=== PATIENT | female | born 1965 | race Caucasian/White ===

== ENCOUNTER → 2017-05-18 | Outpatient (REF) | payer OTHER | LOC: M SFHCWAGY 13:12 | PROVIDERS: ATTEND Nurse Practitioner Women's Health | DX: Z12.4 Encounter for screening for malignant neoplasm of cervix (principal) ==

== ENCOUNTER 2018-07-01 06:34 | Emergency (ER) | payer OTHER ==
[~2018-07-01] VITALS: Ht 160 cm; Wt 77.3 kg
--- NOTE | 2018-07-01 07:32 | REP ---
Clinical: Right shoulder pain with heavy lifting . Technique: Internal rotation, external rotation, and Y view. Findings: No acute fracture or dislocation. The acromioclavicular and glenohumeral joints are intact. Degenerative changes with periarticular calcification along the posterior aspect of the glenoid rim cannot be excluded. Sub acromial space is normal. Surrounding soft tissues are unremarkable. Impression: Possible arthritic changes involving the glenoid rim. Otherwise age appropriate examination. If the patient remains symptomatic consider MRI for further investigation. Electronically Signed by Zack Coulter MD 07/01/2018 07:23 A
[2018-07-01] MEDS ORDERED: MORPHINE 2 MG/ML 1ML SYRINGE (J2270) IM ONE (07:45)
[2018-07-01] MEDS ORDERED: NORCOTAB PO (08:16)
[2018-07-01 08:20] VITALS: BP 179/96
--- NOTE | 2018-07-01 13:59 | ECGEPIP ---
Stationary ECG Study [facility] - ED Test Date: 2018-07-01 Pat Name: ANICETO WATERMAN Department: Room: - Gender: F Conversion Developer: : 1965 Requested By: LUIS DANIEL Deluna PA-C Order Number: [id number] Reading MD: Amy Griggs Measurements Intervals [place] Rate: 56 P: 21 [place]: 159 QRS: 14 QRSD: 106 T: 1 QT: 432 QTc: 418 Interpretive Statements SINUS BRADYCARDIA NSTTW ABNORMALITY NO PRIOR FOR COMPARISON Electronically Signed On 07-01-2018 13:59:25 EST by Amy Griggs
== END 2018-07-01 08:25 | disposition home or self-care (01) ==
LOC: M ED 06:34
DX: M25.511 Pain in right shoulder (principal); I10 Essential (primary) hypertension; Z88.8 Allergy status to other drugs, medicaments and biological substances
CPT/HCPCS: 73030; 93005; 96372; 99284; J2270

== ENCOUNTER → 2018-08-10 | Outpatient (REF) | payer OTHER ==
[~2018-08-10] MED LIST: NORCOTAB PO
== END ==
LOC: M SFHCLERA 11:02
PROVIDERS: ATTEND Nurse Practitioner Family
DX: J02.9 Acute pharyngitis, unspecified (principal)

== ENCOUNTER → 2018-09-12 | Outpatient (REF) | payer OTHER ==
[~2018-09-12] MED LIST changes: +HYDR-3715 PO; -NORCOTAB PO
[2018-09-12 18:15] LABS: APPEARANCE, URINE CLEAR (CLEAR); BACTERIA, URINE AUTO NEGATIVE (NEGATIVE); BILIRUBIN, URINE AUTO NEGATIVE (NEGATIVE); BLOOD, URINE BLOOD NEGATIVE (NEGATIVE); COLOR, URINE STRAW (YELLOW); GLUCOSE, URINE (UA) AUTO NEGATIVE (NEGATIVE); KETONE, URINE AUTO NEGATIVE (NEGATIVE); LEUKOCYTE ESTERASE, URINE AUTO 3+ (NEGATIVE); MUCUS, URINE SMALL (NEGATIVE); NITRITE, URINE AUTO NEGATIVE (NEGATIVE); PROTEIN, URINE AUTO NEGATIVE (NEGATIVE); RBC, URINE AUTO 0 /HPF (0-3); SPECIFIC GRAVITY URINE AUTO 1.006 (1.002-1.035); SQUAMOUS EPITHELIAL CELL UR AU 0 /HPF (0-6); TRANSITIONAL EPITHELIAL AUTO 2 /HPF; UROBILINOGEN, URINE AUTO 0.2 mg/dL (0.0-2.0); WBC, URINE AUTO 55 /HPF (0-3)
== END ==
LOC: M SMT 17:28
PROVIDERS: ATTEND Nurse Practitioner Family
DX: R31.0 Gross hematuria (principal)
CPT/HCPCS: 81001; 87088; 87186; 88108; G0463

== ENCOUNTER → 2018-09-16 | Outpatient (CLI) | payer OTHER ==
[~2018-09-16] MED LIST changes: -HYDR-3715 PO; +ISOVUE-370 76% 125ML VIAL (Q9967 PER ML) As Ordered ONE; +NORCOTAB PO
--- NOTE | 2018-09-16 16:21 | REP ---
Clinical: Gross hematuria. Technique: Axial precontrast, contrast enhanced, and delayed images of the abdomen and pelvis using 100 ml Isovue 370 intravenous contrast material with coronal and sagittal re-formations as well as 3-D CT urogram. Findings: Evaluation of the urinary check system suggests a 1 mm nonobstructing lower pole right renal calculus (image 65). No further abnormalities are appreciated. Specifically, no perinephric stranding, hydroureteronephrosis, obstructing ureteral calculi, cystic or renal mass lesions are identified. Evaluation of the bladder demonstrates a 2.5 mm calculus along the nondependent left anterior bladder wall associated mural abnormality cannot be excluded although no obvious enhancing lesion is appreciated. Liver, spleen, pancreas, and bilateral adrenal glands are normal. Cholelithiasis noted without acute cholecystitis. The enteric system is without obstruction or acute inflammatory process. Normal terminal ileum and appendix are identified in the right lower quadrant. Further evaluation the pelvis demonstrates normal uterus / adnexa. No ascites. No free air. No adenopathy. Abdominal aorta and vasculature normal. Musculoskeletal structures are intact. Impression: 1. 1 mm nonobstructing right intrarenal calculus. A 2.5 mm calculus along the nondependent the left anterior bladder wall without further obvious bladder abnormality. Cystoscopy may be warranted for further investigation. Remainder of the urinary tract system appears normal. 2. Cholelithiasis. Electronically Signed by Zack Coulter MD 09/16/2018 04:12 P
== END ==
LOC: M RAD 15:28
PROVIDERS: ATTEND Nurse Practitioner Family
DX: R31.0 Gross hematuria (principal); N20.0 Calculus of kidney; K80.20 Calculus of gallbladder without cholecystitis without obstruction
CPT/HCPCS: 74178; Q9967

== ENCOUNTER → 2018-11-11 | Outpatient (CLI) | payer OTHER ==
[~2018-11-11] MED LIST changes: +HYDR-3715 PO; -ISOVUE-370 76% 125ML VIAL (Q9967 PER ML) As Ordered ONE; -NORCOTAB PO
[2018-11-11 09:48] LABS: APPEARANCE, URINE CLEAR (CLEAR); BACTERIA, URINE AUTO NEGATIVE (NEGATIVE); BILIRUBIN, URINE AUTO NEGATIVE (NEGATIVE); BLOOD, URINE BLOOD NEGATIVE (NEGATIVE); COLOR, URINE STRAW (YELLOW); GLUCOSE, URINE (UA) AUTO NEGATIVE (NEGATIVE); HEMATOCRIT 43.1 % (36.0-47.0); HEMOGLOBIN 14.3 g/dl (12.0-15.5); KETONE, URINE AUTO NEGATIVE (NEGATIVE); LEUKOCYTE ESTERASE, URINE AUTO TRACE (NEGATIVE); MEAN CORPUSCULAR HEMOGLOBIN 29.6 pg (27.0-33.0); MEAN CORPUSCULAR HGB CONC 33.2 g/dl (32.0-36.5); MEAN CORPUSCULAR VOLUME 89.2 fl (80.0-96.0); NITRITE, URINE AUTO NEGATIVE (NEGATIVE); PLATELET COUNT, AUTOMATED 261 10^3/uL (150-450); PROTEIN, URINE AUTO NEGATIVE (NEGATIVE); RBC, URINE AUTO 0 /HPF (0-3); RED BLOOD COUNT 4.83 10^6/uL (4.00-5.40); SPECIFIC GRAVITY URINE AUTO 1.003 (1.002-1.035); SQUAMOUS EPITHELIAL CELL UR AU 0 /HPF (0-6); UROBILINOGEN, URINE AUTO 0.2 mg/dL (0.0-2.0); WBC, URINE AUTO 3 /HPF (0-3); WHITE BLOOD COUNT 6.1 10^3/uL (4.0-10.0)
[2018-11-11 10:18] LABS: BLOOD UREA NITROGEN 12 MG/DL (7-18); CARBON DIOXIDE LEVEL 31 MEQ/L (21-32); CHLORIDE LEVEL 104 MEQ/L (98-107); CREATININE FOR GFR 0.76 MG/DL (0.55-1.30); GLOMERULAR FILTRATION RATE > 60.0 (>51); GLUCOSE, FASTING 97 MG/DL (70-100); POTASSIUM SERUM 4.6 MEQ/L (3.5-5.1); SODIUM LEVEL 140 MEQ/L (136-145)
--- NOTE | 2018-11-11 12:41 | ECGEPIP ---
[facility] Test Date: 2018-11-11 Pat Name: ANICETO WATERMAN Department: Room: - Gender: Female Gut Snatcher: PEÑA : 1965 Requested By: CHUCK Blanchard Order Number: [id number] Reading MD: Alem Rayo Measurements Intervals [place] Rate: 63 P: ID: 160 QRS: 14 QRSD: 86 T: 2 QT: 388 QTc: 398 Interpretive Statements Normal sinus rhythm NONSPECIFIC ST-WAVE ABNORMALITY FREQUENT PVCS QUADRIGEMINY RATE FASTER PVCS NEW C/W 07/01/18 Electronically Signed on 11-11-2018 12:40:46 EDT by Alem Rayo
== END ==
LOC: M LAB 08:55
PROVIDERS: ATTEND Specialist
DX: R31.0 Gross hematuria (principal)

== ENCOUNTER 2018-11-21 07:10 | Day surgery (SDC) | payer OTHER ==
[~2018-11-21] VITALS: Ht 160 cm; Wt 79.4 kg
[~2018-11-21 07:10] MED LIST changes: +LIDOCAINE 1% MDV 20ML VIAL SQ PRN; +LR 1,000 ML IV ONE
[2018-11-21] MEDS ORDERED: SCOPOLAMINE 1MG TRANSDERMAL PATCH TOP SCH (08:00)
[2018-11-21] MEDS ORDERED: ONDANSETRON 4MG/2ML VIAL (J2405) As Ordered ONE (08:08)
[2018-11-21] MEDS ORDERED: LIDOCAINE 2% INJ 100 MG/5 ML SDV (FOR ANES.) As Ordered ONE (08:08)
[2018-11-21] MEDS ORDERED: PROPOFOL 200 MG/20 ML VIAL As Ordered ONE (08:08)
[2018-11-21] MEDS ORDERED: ROCURONIUM BROMIDE 50 MG/5 ML VIAL As Ordered ONE (08:08)
[2018-11-21] MEDS ORDERED: dexameTHASONE 4 MG/ML 1ML VIAL (J1100) As Ordered ONE (08:08)
[2018-11-21] MEDS ORDERED: MIDAZOLAM INJ 2 MG/2 ML VIAL (J2250) As Ordered ONE (08:13)
[2018-11-21] MEDS ORDERED: fentaNYL 100 MCG/2 ML INJECTION (J3010) As Ordered ONE ×2 (08:13→10:51)
[2018-11-21] MEDS ORDERED: BUPIVACAINE/EPIN 0.25% 30 ML VIAL As Ordered ONE (09:02)
[2018-11-21] MEDS ORDERED: LIDOCAINE 2% 5ML JELLY UROJET As Ordered ONE (09:02)
[2018-11-21] MEDS ORDERED: BACITRACIN PWD 50,000 UNITS VIAL As Ordered ONE (09:50)
[2018-11-21] MEDS ORDERED: BACITRACIN OINT 30GM As Ordered ONE (10:26)
[2018-11-21] MEDS ORDERED: oxyCODONE 5MG TAB As Ordered ONE (11:04)
[2018-11-21] MEDS ORDERED: METOCLOPRAMIDE INJ 10MG/2ML VIAL (J2765) As Ordered ONE (11:10)
--- NOTE | 2018-11-21 11:19 | RO ---
DATE OF SURGICAL PROCEDURE: 11/21/2018 PREOPERATIVE DIAGNOSES: History of a tension-free vaginal tape-obturator (TVT-O), now with bladder calcifications seen on sling material, and also extrusion and erosion of midurethral sling in the vaginal region. POSTOPERATIVE DIAGNOSES: History of a tension-free vaginal tape-obturator (TVT-O), now with bladder calcifications seen on sling material, and also extrusion and erosion of midurethral sling in the vaginal region. PROCEDURES: 1. Vaginal examination under anesthesia with exploration and removal of midurethral sling material. 2. Cystoscopy with transurethral resection of bladder calcification in sling material coming through the left lateral wall. SURGEON: Dr. Liz Modi ANESTHESIA: General. MEDICATIONS: Ancef 2 grams preoperatively. DRAINS: 16-[place]ander Holloway catheter. SPECIMENS: Calcification in sling material. INDICATIONS FOR PROCEDURE: The patient is a 53-year-old female who had a TVT-O placed by Dr. Schmitt in 2008. In 2010, she had this removed cystoscopically but still has had issues since. She was found to have significant white and red blood cells on microscopic urinalyses but without recurrent infections. A CT scan done 09/16/2018 showed a 1-mm calcification in the left anterior bladder wall measuring 2.5 mm. On physical examination, she was also felt to have a small erosion under the midurethra. After discussing all different options, alternatives, risks, and benefits, it was decided to bring her to the operating room to start with the most minimally invasive surgery, which was cystoscopic removal of the mesh material and removal of mesh material vaginally. Informed consent was obtained. DESCRIPTION OF PROCEDURE: The patient was brought into the operating room. Sequential compression devices were in place, and preoperative antibiotics were given. General anesthesia was induced. The patient was then placed in the lithotomy position, and careful attention was paid that her pressure points were well padded and protected. She was prepped and draped in a usual fashion. Next, a [place]field retractor was utilized, and a vaginal examination was done. Again, there was some extrusion of the mesh material underneath the midurethra. A midurethral incision was made, and some mesh material was removed. When no more mesh material was felt, copious antibiotic irrigation was done, and vaginal mucosa was reapproximated using 2-0 chromic sutures. Next, a 24-[place] Ze[place]ander continuous-flow resectoscope was inserted. The urethra was opened without any evidence of lesions, strictures, or injury. Upon entering the bladder, both ureteral orifices were seen. Again, on the anterior lateral wall of the left side of the bladder, a calcification was seen coming in on what appeared to be mesh material. This was resected using a loop, and there was no further mesh seen on the bladder wall. At this point, fulguration was done. The patient's bladder was emptied. A 16-[place] Holloway catheter was placed, and packing was placed in the vaginal region. Both the catheter and the packing will be removed in approximately an hour, since the resection was not very significant on this side. The patient tolerated the procedure well and was returned to the recovery room in stable condition.
[2018-11-21] MEDS ORDERED: LR 1,000 ML IV SCH (11:30)
[2018-11-21] MEDS ORDERED: METOCLOPRAMIDE INJ 10MG/2ML VIAL (J2765) IV PRN (11:30)
[2018-11-21] MEDS ORDERED: oxyCODONE 5MG TAB PO PRN (11:30)
[2018-11-21] MEDS ORDERED: PROMETHAZINE INJ 25 MG/ML VIAL (J2550) IV PRN (11:30)
[2018-11-21] MEDS ORDERED: fentaNYL 100 MCG/2 ML INJECTION (J3010) IV PRN (11:30)
[2018-11-21 13:50] VITALS: BP 143/88
== END 2018-11-21 14:10 | disposition home or self-care (01) ==
LOC: M SDC 07:10
PROVIDERS: ATTEND Specialist
DX: T83.712A Erosion of implanted urethral mesh to surrounding organ or tissue, initial encounter (principal); N32.89 Other specified disorders of bladder; I10 Essential (primary) hypertension; R01.1 Cardiac murmur, unspecified; R32 Unspecified urinary incontinence; Z87.440 Personal history of urinary (tract) infections; Z88.6 Allergy status to analgesic agent
CPT/HCPCS: 52224; 57287; 88300; 88304; J0690; J1100; J2250; J2405; J2765; J3010

== ENCOUNTER → 2018-12-07 | Outpatient (REF) | payer OTHER ==
[~2018-12-07] MED LIST changes: -LIDOCAINE 1% MDV 20ML VIAL SQ PRN; -LR 1,000 ML IV ONE
[2018-12-07 20:46] LABS: APPEARANCE, URINE CLEAR (CLEAR); BACTERIA, URINE AUTO NEGATIVE (NEGATIVE); BILIRUBIN, URINE AUTO NEGATIVE (NEGATIVE); BLOOD, URINE BLOOD 2+ (NEGATIVE); COLOR, URINE YELLOW (YELLOW); GLUCOSE, URINE (UA) AUTO NEGATIVE (NEGATIVE); KETONE, URINE AUTO NEGATIVE (NEGATIVE); LEUKOCYTE ESTERASE, URINE AUTO 1+ (NEGATIVE); MUCUS, URINE SMALL (NEGATIVE); NITRITE, URINE AUTO NEGATIVE (NEGATIVE); PROTEIN, URINE AUTO 1+ mg/dL (NEGATIVE); RBC, URINE AUTO 141 /HPF (0-3); SPECIFIC GRAVITY URINE AUTO 1.012 (1.002-1.035); SQUAMOUS EPITHELIAL CELL UR AU 0 /HPF (0-6); UROBILINOGEN, URINE AUTO 0.2 mg/dL (0.0-2.0); WBC, URINE AUTO 10 /HPF (0-3)
== END ==
LOC: M LABSMT 14:57
PROVIDERS: ATTEND Nurse Practitioner Family
DX: R30.0 Dysuria (principal)

== ENCOUNTER → 2019-10-27 | Outpatient (REF) | payer OTHER | LOC: M SFHCWAGY 10:19 | PROVIDERS: ATTEND Nurse Practitioner Women's Health | DX: Z12.4 Encounter for screening for malignant neoplasm of cervix (principal) | CPT/HCPCS: G0123; G0463 ==

== ENCOUNTER → 2022-02-25 | Outpatient (CLI) | payer OTHER | LOC: M WHC 14:50 | PROVIDERS: ATTEND Nurse Practitioner Family | DX: Z12.31 Encounter for screening mammogram for malignant neoplasm of breast (principal) ==

== ENCOUNTER 2022-08-23 09:15 | Emergency (ER) | payer OTHER ==
[~2022-08-23] VITALS: Ht 157.5 cm; Wt 77.0 kg
[2022-08-23] MEDS ORDERED: LIDOCAINE 5% (LIDODERM) PATCH TD ONE (10:00)
[2022-08-23] MEDS ORDERED: ONDANSETRON 4MG 2ML VIAL IV ONE (10:00)
[2022-08-23] MEDS ORDERED: MORPHINE 4 MG/ML 1ML VIAL IV ONE (10:00)
[2022-08-23] MEDS ORDERED: CYCLOBENZAPRINE 5MG TABLET PO ONE (10:05)
[2022-08-23 10:23] LABS: BASO % 0.2 % (0.0-1.0); EOS % 0.2 % (0.0-3.0); HEMATOCRIT 40.6 % (36.0-47.0); HEMOGLOBIN 13.6 g/dl (12.0-15.5); LYMPH # 2.1 10^3/uL (1.5-5.0); LYMPH % 21.3 % (24.0-44.0); MEAN CORPUSCULAR HEMOGLOBIN 29.1 pg (27.0-33.0); MEAN CORPUSCULAR HGB CONC 33.5 g/dl (32.0-36.5); MEAN CORPUSCULAR VOLUME 86.8 fl (80.0-96.0); MONO # 0.9 10^3/uL (0.0-0.8); NEUTROPHILS # 6.9 10^3/uL (1.5-8.5); PLATELET COUNT, AUTOMATED 287 10^3/uL (150-450); RED BLOOD COUNT 4.68 10^6/uL (4.00-5.40)
[2022-08-23] MEDS ORDERED: ISOVUE-370 76% 100ML VIAL As Ordered ONE (10:41)
[2022-08-23 10:51] LABS: LIPASE 24 U/L (12-53)
[2022-08-23 10:52] LABS: CK-MB VALUE MASS < 1.0 NG/ML (<3.6)
[2022-08-23 10:53] LABS: ALBUMIN 3.7 G/DL (3.2-5.2); ALKALINE PHOSPHATASE 83 U/L (46-116); ALT/SGPT 22 U/L (7.0-40); AST/SGOT 11 U/L (<34); BILIRUBIN,DIRECT 0.1 MG/DL (<0.4); BILIRUBIN,TOTAL 0.6 MG/DL (0.3-1.2); CPK CREATINE PHOSPHOKINASE 25 U/L (34-145)
[2022-08-23] MEDS ORDERED: LIDO5DIS41 TOP (13:29)
[2022-08-23] MEDS ORDERED: BENZ200C70 PO (13:29)
[2022-08-23] MEDS ORDERED: CYCL5TAB PO (13:29)
[2022-08-23 13:39] VITALS: BP 138/72
== END 2022-08-23 13:41 | disposition home or self-care (01) ==
LOC: M ED 09:15
DX: R10.84 Generalized abdominal pain (principal); N28.1 Cyst of kidney, acquired; S39.012A Strain of muscle, fascia and tendon of lower back, initial encounter; S39.011A Strain of muscle, fascia and tendon of abdomen, initial encounter; J98.11 Atelectasis; K76.0 Fatty (change of) liver, not elsewhere classified; M62.830 Muscle spasm of back; Z86.16 Personal history of COVID-19; K80.20 Calculus of gallbladder without cholecystitis without obstruction; I10 Essential (primary) hypertension; E78.5 Hyperlipidemia, unspecified; Z88.6 Allergy status to analgesic agent; Z79.899 Other long term (current) drug therapy
CPT/HCPCS: 71275; 74177; 80047; 80076; 81001; 82550; 82553; 83605; 83690; 84484; 85025; 87086; 93041; 94760; 96374; 96375; 99285; J2270; J2405

== ENCOUNTER 2023-03-24 13:57 | Observation (INO) | payer OTHER ==
[~2023-03-24] VITALS: Ht 157.5 cm; Wt 74.8 kg
[~2023-03-24 13:57] MED LIST changes: +BENZ200C70 PO; +CYCL5TAB PO; +LIDO5DIS41 TOP
[2023-03-24] MEDS ORDERED: SCOPOLAMINE 1MG TRANSDERMAL PATCH TOP ONE (16:05)
[2023-03-24] MEDS ORDERED: ROCURONIUM BROMIDE 50MG/5ML VIAL As Ordered ONE ×2 (16:09→16:58)
[2023-03-24] MEDS ORDERED: LIDOCAINE 2% 100MG/5ML SDV (FOR ANES.) As Ordered ONE (16:09)
[2023-03-24] MEDS ORDERED: propofoL 200 MG/20 ML VIAL As Ordered ONE (16:09)
[2023-03-24] MEDS ORDERED: MIDAZOLAM INJ 2MG/2ML VIAL As Ordered ONE (16:10)
[2023-03-24] MEDS ORDERED: fentaNYL 100 MCG/2 ML INJECTION As Ordered ONE (16:10)
[2023-03-24] MEDS ORDERED: ceFAZolin 2 GM/D5W 50 ML IV BAG As Ordered ONE (16:36)
[2023-03-24] MEDS ORDERED: TRANEXAMIC ACID 100 MG/ML 10ML VIAL As Ordered ONE (16:36)
[2023-03-24] MEDS ORDERED: KETOROLAC 60MG 2ML VIAL As Ordered ONE (16:58)
[2023-03-24] MEDS ORDERED: ONDANSETRON 4MG 2ML VIAL As Ordered ONE (16:58)
[2023-03-24] MEDS ORDERED: METOCLOPRAMIDE INJ 10MG/2ML VIAL As Ordered ONE (16:58)
[2023-03-24] MEDS ORDERED: SUGAMMADEX SODIUM 500 MG/5 ML VIAL (BRIDION) As Ordered ONE (16:58)
[2023-03-24] MEDS ORDERED: ACETAMINOPHEN 1000MG 100ML IV BAG As Ordered ONE (16:58)
[2023-03-24] MEDS ORDERED: ceFAZolin SOD 2 GM in IV 1 EA IV ONE (17:05)
[2023-03-24] MEDS ORDERED: TRANEXAMIC ACID INJection 1,000 MG in NS 100 ML IV ONE (17:05)
[2023-03-24] MEDS ORDERED: HYDROmorphone HCL 2MG/ML 1ML VIAL As Ordered ONE (17:14)
[2023-03-24] MEDS ORDERED: VANCOMYCIN 1000MG/20ML VIAL As Ordered ONE (18:38)
[2023-03-24] MEDS ORDERED: ONDANSETRON 4MG 2ML VIAL IV PRN (19:15)
[2023-03-24] MEDS ORDERED: oxyCODONE 5MG TAB PO PRN ×2 (19:15→22:15)
[2023-03-24] MEDS: fentaNYL 100 MCG/2 ML INJECTION IV PRN ×4 (19:28→19:44)
[2023-03-24] MEDS ORDERED: EPINEPHrine INJ 1 MG/ML 1ML AMP PN ONE (19:40)
[2023-03-24] MEDS ORDERED: LIDOCAINE 1% SDV 5ML VIAL PN ONE (19:40)
[2023-03-24] MEDS ORDERED: fentaNYL 100 MCG/2 ML INJECTION IV PRN (19:40)
[2023-03-24] MEDS ORDERED: ROPIvacaine 0.5% 30ML VIAL PN ONE (19:40)
[2023-03-24] MEDS ORDERED: MIDAZOLAM INJ 2MG/2ML VIAL IV PRN (19:40)
[2023-03-24] MEDS ORDERED: dexAMETHasone 10MG/1ML VIAL PRES.FREE PN ONE (19:40)
[2023-03-24] MEDS: HYDROMORPHONE HCL 0.5 MG/ 0.5 ML SYRINGE IV PRN ×2 (19:58→20:06)
[2023-03-24] MEDS ORDERED: hydrALAZINE 20MG/ML 1ML VIAL As Ordered ONE (20:21)
[2023-03-24] MEDS ORDERED: hydrALAZINE 20MG/ML 1ML VIAL IV PRN (20:50)
[2023-03-24 21:23] VITALS: BP 127/78; TEMP 97.5; O2SAT 98
[2023-03-24] MEDS ORDERED: ACETAMINOPHEN TAB 650MG DOSE (2X325MG) PO PRN (21:55)
[2023-03-24 22:05] VITALS: BP 150/65; TEMP 97.2; O2SAT 97
[2023-03-24] MEDS ORDERED: PERCOCET 5MG/325MG TAB PO PRN (22:15)
[2023-03-24 23:00] VITALS: BP 148/68; TEMP 97.5; O2SAT 96
[2023-03-24] MEDS ORDERED: ACET-897 PO (23:36)
[2023-03-24] MEDS ORDERED: MAGN400T2 PO (23:36)
[2023-03-24] MEDS ORDERED: FAMO1TAB11 PO (23:36)
[2023-03-24] MEDS ORDERED: FEXO-116 PO (23:36)
[2023-03-24] MEDS ORDERED: HOME MED LIST COMPLETE! XX SCH (23:40)
[2023-03-25] VITALS (8 sets, daily range): BP systolic 122–154; BP diastolic 60–76; TEMP 97.1–98.8; O2SAT 95–98
[2023-03-25] MEDS ORDERED: LR 1,000 ML IV SCH (02:20)
[2023-03-25 06:40] LABS: HEMATOCRIT 38.9 % (36.0-47.0); HEMOGLOBIN 12.8 g/dl (12.0-15.5); MEAN CORPUSCULAR HEMOGLOBIN 29.4 pg (27.0-33.0); MEAN CORPUSCULAR HGB CONC 32.9 g/dl (32.0-36.5); MEAN CORPUSCULAR VOLUME 89.2 fl (80.0-96.0); PLATELET COUNT, AUTOMATED 262 10^3/uL (150-450); RED BLOOD COUNT 4.36 10^6/uL (4.00-5.40)
[2023-03-25 07:12] LABS: BLOOD UREA NITROGEN 13 MG/DL (9-23); CARBON DIOXIDE LEVEL 26 MMOL/L (20-31); CHLORIDE LEVEL 105 MMOL/L (98-107); CREATININE FOR GFR 0.59 MG/DL (0.55-1.30); GLOMERULAR FILTRATION RATE > 60.0 (>51); GLUCOSE, FASTING 143 MG/DL (60-100); POTASSIUM SERUM 4.4 MMOL/L (3.5-5.1); SODIUM LEVEL 139 MMOL/L (136-145)
[2023-03-25] MEDS: ENOXAPARIN 40MG/0.4ML SYRINGE (J1650 PER 10MG) SC SCH (09:05)
[2023-03-25] MEDS: ACETAMINOPHEN 500 MG TAB PO SCH ×3 (14:00→21:41)
[2023-03-25] MEDS: traMADol 50 MG TAB PO SCH ×3 (14:00→21:42)
[2023-03-25] MEDS ORDERED: HYDROMORPHONE HCL 0.5 MG/ 0.5 ML SYRINGE IV PRN (18:30)
[2023-03-25] MEDS: HYDROMORPHONE HCL 0.5 MG/ 0.5 ML SYRINGE IV PRN ×2 (18:59→22:32)
[2023-03-25] MEDS ORDERED: traMADol 50 MG TAB PO ONE (20:35)
[2023-03-25] MEDS ORDERED: NALOXONE 2MG/2ML SYRINGE PRN (23:20)
[2023-03-26 06:30] VITALS: BP 161/80; TEMP 97.9; O2SAT 98
[2023-03-26] MEDS: ACETAMINOPHEN 500 MG TAB PO SCH ×3 (06:30→21:09)
[2023-03-26] MEDS: traMADol 50 MG TAB PO SCH ×3 (06:31→21:09)
[2023-03-26] MEDS ORDERED: oxyCODONE 5MG TAB PO PRN (06:35)
[2023-03-26] MEDS: oxyCODONE 5MG TAB PO PRN ×2 (09:19→16:49)
[2023-03-26] MEDS: ENOXAPARIN 40MG/0.4ML SYRINGE (J1650 PER 10MG) SC SCH (09:19)
[2023-03-26 14:00] VITALS: BP 170/81; TEMP 97.9; O2SAT 97
[2023-03-26 20:45] VITALS: BP 176/86; TEMP 98.4; O2SAT 94
[2023-03-27] MEDS: oxyCODONE 5MG TAB PO PRN ×3 (01:43→17:10)
[2023-03-27] MEDS: ACETAMINOPHEN 500 MG TAB PO SCH ×2 (05:47→13:38)
[2023-03-27] MEDS: traMADol 50 MG TAB PO SCH ×2 (05:47→13:38)
[2023-03-27 05:52] VITALS: BP 148/64; TEMP 98.1; O2SAT 94
[2023-03-27] MEDS: ENOXAPARIN 40MG/0.4ML SYRINGE (J1650 PER 10MG) SC SCH (08:58)
[2023-03-27] MEDS ORDERED: TRAM50TA2 PO ×3 (10:51→14:25)
[2023-03-27] MEDS ORDERED: OXYC-517 PO ×3 (10:51→14:25)
[2023-03-27 13:32] VITALS: BP 166/83; TEMP 98.2; O2SAT 96
== END 2023-03-27 19:40 | disposition home or self-care (01) ==
LOC: M SDC 13:57 → M RR INP 19:44 → M MS5PR 21:04
PROVIDERS: ADMIT Family Medicine; ATTEND Family Medicine
DX: S76.111A Strain of right quadriceps muscle, fascia and tendon, initial encounter (principal); W17.2XXA Fall into hole, initial encounter; Y92.821 Forest as the place of occurrence of the external cause; Y93.01 Activity, walking, marching and hiking; Y99.8 Other external cause status; Z88.6 Allergy status to analgesic agent
CPT/HCPCS: 27385; 36415; 80048; 85027; 96372; 96374; 96376; 97116; 97161; 97165; 97530; 97535; C1713; J0131; J0690; J1100; J1170; J1650; J1885; J2250; J2405; J2765; J3010; J3370

== ENCOUNTER → 2023-06-01 | Outpatient (REF) | payer OTHER ==
[~2023-06-01] MED LIST changes: +ACET-897 PO; +FAMO1TAB11 PO; +FEXO-116 PO; +MAGN400T2 PO; +OXYC-517 PO; +TRAM50TA2 PO
== END ==
LOC: M LAB REF 15:58
PROVIDERS: ATTEND Surgery
DX: C44.729 Squamous cell carcinoma of skin of left lower limb, including hip (principal); L57.8 Other skin changes due to chronic exposure to nonionizing radiation

== ENCOUNTER → 2024-04-05 | Outpatient (CLI) | payer OTHER | LOC: M WHC 12:20 | PROVIDERS: ATTEND Nurse Practitioner Family | DX: Z12.31 Encounter for screening mammogram for malignant neoplasm of breast (principal) ==

== ENCOUNTER → 2024-04-12 | Outpatient (CLI) | payer OTHER | LOC: M WHC 12:41 | PROVIDERS: ATTEND Nurse Practitioner Family | DX: R92.2 Inconclusive mammogram (principal); N60.11 Diffuse cystic mastopathy of right breast ==

== ENCOUNTER 2024-07-18 09:55 | Day surgery (SDC) | payer OTHER ==
[~2024-07-18] VITALS: Ht 160 cm; Wt 80.7 kg
[~2024-07-18 09:55] MED LIST changes: +CYAN500T14 PO; -CYCL5TAB PO; +CYCL5TAB4 PO; +DOXY50CA50 PO; +LIDOCAINE 2% 100MG/5ML SDV (FOR ANES.) As Ordered ONE; +LISI10TA22 PO; +ONDANSETRON 4MG 2ML VIAL As Ordered ONE; +ROCURONIUM BROMIDE 50MG/5ML VIAL As Ordered ONE; +SUGAMMADEX SODIUM 500 MG/5 ML VIAL (BRIDION) As Ordered ONE; +VITA100093 PO; +fentaNYL 100 MCG/2 ML INJECTION As Ordered ONE; +propofoL 200 MG/20 ML VIAL As Ordered ONE
[2024-07-18] MEDS ORDERED: MIDAZOLAM INJ 2MG/2ML VIAL As Ordered ONE (09:56)
[2024-07-18] MEDS ORDERED: NS (Normal Saline) 0.9% 1,000 ML IV SCH ×2 (10:50→13:05)
[2024-07-18] MEDS: SCOPOLAMINE 1MG TRANSDERMAL PATCH TOP ONE (11:19)
[2024-07-18] MEDS: METHYLENE BLUE 0.5% (5MG/ML) 10 ML AMP (PROVAYBLUE) As Ordered ONE (12:26)
[2024-07-18] MEDS: LIDOCAINE W/EPINEPHRINE 1% 20ML VIAL As Ordered ONE (12:26)
[2024-07-18] MEDS: OXYMETAZOLINE 0.05% NASAL SPRAY (AFRIN) As Ordered ONE (12:26)
[2024-07-18] MEDS ORDERED: LABETALOL 100MG/20ML VIAL As Ordered ONE (12:28)
[2024-07-18] MEDS ORDERED: ACETAMINOPHEN 1000MG/100ML IV BAG As Ordered ONE (12:42)
[2024-07-18] MEDS ORDERED: fentaNYL 100 MCG/2 ML INJECTION IV PRN (13:05)
[2024-07-18] MEDS ORDERED: ONDANSETRON 4MG 2ML VIAL IV PRN (13:05)
[2024-07-18] MEDS ORDERED: HYDROMORPHONE HCL 0.5 MG/ 0.5 ML SYRINGE IV PRN (13:05)
[2024-07-18] MEDS: oxyCODONE 5MG TAB PO PRN (14:27)
[2024-07-18 14:55] VITALS: BP 157/77; TEMP 98.7; O2SAT 96
== END 2024-07-18 15:00 | disposition home or self-care (01) ==
LOC: M SDC 09:55
PROVIDERS: ATTEND Otolaryngology
DX: J34.2 Deviated nasal septum (principal); J34.3 Hypertrophy of nasal turbinates; J34.89 Other specified disorders of nose and nasal sinuses; R06.83 Snoring; Z91.013 Allergy to seafood; Z88.6 Allergy status to analgesic agent; Z79.899 Other long term (current) drug therapy
CPT/HCPCS: 30140; 30520; J0131; J1100; J1920; J2250; J2405; J3010; Q9968